=== PATIENT | female | born 1970 | race Caucasian/White ===

== ENCOUNTER → 2017-12-21 | Outpatient (CLI) | payer BC ==
--- NOTE | 2017-12-21 15:20 | RAD ---
Pelvic ultrasound, 12/21/2017: History: Pelvic pain, heavy menses Transabdominal and transvaginal scans were obtained. The uterus measures 7.6 x 3.5 x 4.4 cm. Small both nabothian are present in the cervical region. The myometrium is heterogeneous. There are several small hypoechoic foci in the uterus suggesting uterine fibroids. The largest of these lies posteriorly and measures 1.3 cm. There is a small 1.1 cm cystic-appearing structure within the left side of the uterus. There is a tiny amount of fluid in the central uterine cavity in the lower uterine segment. The central uterine echo complex superior to this level measures 3 mm in thickness. The ovaries are of normal size. No adnexal mass is seen. No free fluid is evident in the pelvis. IMPRESSION: 1. Small uterine fibroids. 2. Nabothian cysts in the cervix. 3. Tiny amount of fluid in the central uterine cavity. 4. No significant adnexal abnormality.
--- NOTE | 2017-12-24 11:03 | RAD ---
DATE: 12/21/2017 EXAM: MAMMO JYOTI SCREENING BILATERAL HISTORY: Routine screening. This is dictated as a baseline examination COMPARISON: None available This study was interpreted with the benefit of Computerized Aided Detection (CAD). FINDINGS: Breast Density: HETERO The breast parenchyma Is heterogeneouslyy dense, which could reduce sensitivity of mammography. Breast parenchyma level C. There are no dominant suspicious masses, suspicious microcalcifications or evidence of architectural distortion. Intramammary lymph node identified in the right breast. Bilateral breast prostheses appear intact. IMPRESSION: Benign findings BI-RADS CATEGORY: 2 BENIGN FINDING RECOMMENDED FOLLOW-UP: 12M 12 MONTH FOLLOW-UP PQRS compliance statement: Patient information was entered into a reminder system with a target due date 12/21/2018 for the next mammogram. Mammography is a sensitive method for finding small breast cancers, but it does not detect them all and is not a substitute for careful clinical examination. A negative mammogram does not negate a clinically suspicious finding and should not result in delay in biopsying a clinically suspicious abnormality. "Our facility is accredited by the [employer] Mammography Program."
== END | disposition home or self-care (01) ==
LOC: US 13:49
PROVIDERS: ATTEND Physician Assistant
DX: Z12.31 Encounter for screening mammogram for malignant neoplasm of breast (principal); D25.9 Leiomyoma of uterus, unspecified; N88.8 Other specified noninflammatory disorders of cervix uteri; N92.0 Excessive and frequent menstruation with regular cycle
CPT/HCPCS: 76830; 76856; 77063; 77067

== ENCOUNTER 2018-04-06 11:04 | Emergency (ER) | payer BC ==
[~2018-04-06] VITALS: Ht 160 cm; Wt 62.0 kg
[2018-04-06 11:04] VITALS: BP 115/68
[2018-04-06 12:03] LABS: BASO % 1 % (0-3); EOS # 0.1 x10^3/uL (0.0-0.7); EOS % 1 % (0-3); HEMATOCRIT 44.9 % (36.0-47.0); HEMOGLOBIN 15.3 g/dL (12.0-15.5); LYMPH # 1.3 x10^3/uL (1.0-4.8); LYMPH % 23 % (24-48); MEAN CORPUSCULAR HEMOGLOBIN 32 pg (25-35); MEAN CORPUSCULAR HGB CONC 34 g/dL (31-37); MEAN CORPUSCULAR VOLUME 95 fL (79-100); MONO # 0.5 x10^3/uL (0.0-1.1); MONO % 8 % (0-9); NEUT # 3.8 x10^3uL (1.8-7.7); NEUT % 66 % (31-73); PLATELET COUNT 336 x10^3/uL (140-400); RED BLOOD COUNT 4.73 x10^6/uL (3.50-5.40); RED CELL DISTRIBUTION WIDTH 12.9 % (11.5-14.5); WHITE BLOOD COUNT 5.8 x10^3/uL (4.0-11.0)
--- NOTE | 2018-04-06 12:03 | PHYS DOC ---
Adult General Chief Complaint Chief Complaint: LOWER EXTREMITY SWELLING [facility] HPI Patient is a 47 YO F WITH LLE SWELLING ONSET A FEW DAYS AGO. SHE HAD SOME PAIN BEHIND HER KNEE SEVERAL MONTHS AGO SHE STOPPED RUNNING BECAUSE SHE THOUGHT IT WAS FROM THAT. PMD ADVISED HER TO FOLLOW UP HERE FOR ULTRASOUND TO EVAL FOR DVT NO CHEST PAIN OR SHORTNESS OF BREATH. Review of Systems Review of Systems Constitutional: Denies fever or chills [] Eyes: Denies change in visual acuity, redness, or eye pain [] HENT: Denies nasal congestion or sore throat [] Respiratory: Denies cough or shortness of breath [] Cardiovascular: No additional information not addressed in HPI [] GI: Denies abdominal pain, nausea, vomiting, bloody stools or diarrhea [] : Denies dysuria or hematuria [] Musculoskeletal: HPI All other systems were reviewed and found to be within normal limits, except as documented in this note. Allergies Allergies Allergies Coded Allergies Type Severity Reaction Last Updated Verified No Known Drug Allergies 04/06/18 No Physical Exam Physical Exam Constitutional: Well developed, well nourished, no acute distress, non-toxic appearance. [] HENT: Normocephalic, atraumatic, bilateral external ears normal, oropharynx moist, no oral exudates, nose normal. [] Eyes: PERRLA, EOMI, conjunctiva normal, no discharge. [] Neck: Normal range of motion, no tenderness, supple, no stridor. [] Cardiovascular:Heart rate regular rhythm, no murmur [] Lungs & Thorax: Bilateral breath sounds clear to auscultation [] Abdomen: Bowel sounds normal, soft, no tenderness, no masses, no pulsatile masses. [] Skin: Warm, dry, no erythema, no rash. [] Back: No tenderness, no CVA tenderness. [] Extremities:THERE IS SWELLING NOTED TO THE LEFT LOWER EXTREMITY WITH MILD CALF TTP NOTED. ALSO POSTERIOR KNEE TTP NOTED. Neurologic: Alert and oriented X 3, normal motor function, normal sensory function, no focal deficits noted. [] Psychologic: Affect normal, judgement normal, mood normal. [] EKG EKG [] Radiology/Procedures Radiology/Procedures [] Impressions: Duplex evaluation including grayscale, color flow and spectral Doppler analysis was performed. The femoral and popliteal veins show no filling defects to suggest DVT. The visualized calf veins are unremarkable. There is an elongated fluid collection in the medial aspect of the left popliteal fossa extending into the upper calf. It measures approximately 4 x 2 x 1 cm. The appearance is that of a Canseco's cyst. IMPRESSION: 1. There is no sonographic evidence of deep vein thrombosis in the left lower extremity. 2. Popliteal cyst extending into the upper calf. Electronically signed by: Alfred Rodriguez MD (04/06/2018 1:11 PM) [facility] DICTATED AND SIGNED BY: ALFRED RODRIGUEZ MD DATE: 04/06/18 0549 CC: ELVI RIGGS MD; OLIVE ARVIZU MD Course & Med Decision Making Course & Med Decision Making Pertinent Labs and Imaging studies reviewed. (See chart for details) []47 YO F WITH LEG SWELLING FOUND TO HAVE POPLITERAL CYST RX MOTRIN, WEAR KNEE BRACE, ICE ELEVATE REST of ankle F/U PMD NEEDED FOR CONTINUED SYMPTOMS. VITALS ON NURSING CHART aWERE NORMAL PE R STAFF. Dragon Disclaimer Dragon Disclaimer This electronic medical record was generated, in whole or in part, using a voice recognition dictation system. Departure Departure: Disposition: 01 HOME, SELF-CARE Condition: STABLE Referrals: ELVI RIGGS MD (PCP) Scripts Ibuprofen (IBUPROFEN) 600 Mg Tablet 600 MG PO TID PRN for PAIN, #30 TAB Prov: OLIVE ARVIZU MD 04/06/18 OLIVE ARVIZU MD Apr 06, 2018 12:03
[2018-04-06 12:17] LABS: ALBUMIN/GLOBULIN RATIO 1.1 (1.0-1.7); CALCIUM 8.9 mg/dL (8.5-10.1); CREATININE 0.8 mg/dL (0.6-1.0); GFR 76.2; POTASSIUM 3.8 mmol/L (3.5-5.1); TOTAL BILIRUBIN 0.7 mg/dL (0.2-1.0); TOTAL PROTEIN 7.5 g/dL (6.4-8.2)
--- NOTE | 2018-04-06 13:14 | RAD ---
Left lower extremity venous ultrasound, 04/06/2018 : History: Posterior knee swelling, calf pain Duplex evaluation including grayscale, color flow and spectral Doppler analysis was performed. The femoral and popliteal veins show no filling defects to suggest DVT. The visualized calf veins are unremarkable. There is an elongated fluid collection in the medial aspect of the left popliteal fossa extending into the upper calf. It measures approximately 4 x 2 x 1 cm. The appearance is that of a Canseco's cyst. IMPRESSION: 1. There is no sonographic evidence of deep vein thrombosis in the left lower extremity. 2. Popliteal cyst extending into the upper calf. Electronically signed by: Alfred Rodriguez MD (04/06/2018 1:11 PM) [facility]
[2018-04-06] MEDS ORDERED: IBUP600T16 PO (13:58)
== END 2018-04-06 13:56 | disposition home or self-care (01) ==
LOC: ER 11:04
DX: M71.22 Synovial cyst of popliteal space [Baker], left knee (principal)
CPT/HCPCS: 36415; 80053; 84702; 85025; 85610; 93971; 99285-25

== ENCOUNTER → 2018-06-11 | Day surgery (SDC) | payer BC ==
[~2018-06-11] MED LIST: IBUP600T16 PO; IV RINGERS SOLUTION,LACTATED 1,000 ML IV SCH; LIDOCAINE 1% PF 2 ML VIAL. ID PRN; LIDOCAINE 2% 20 ML VIAL. ONE; PROPOFOL 10,000 MCG/ML (20ML) VIAL IV ONE; PROPOFOL 20 ML IV ONE
[2018-06-11 11:45] VITALS: BP 112/56
== END | disposition home or self-care (01) ==
LOC: SURG 08:57
PROVIDERS: ATTEND Internal Medicine Gastroenterology
DX: Z12.11 Encounter for screening for malignant neoplasm of colon (principal); F32.9 Major depressive disorder, single episode, unspecified; F41.9 Anxiety disorder, unspecified; Z98.890 Other specified postprocedural states
CPT/HCPCS: 45378; J2704; J7120; J2001

== ENCOUNTER → 2020-04-27 | Outpatient (CLI) | payer BC ==
[2018-06-11 11:45] VITALS: BP 112/56
[~2020-04-27] MED LIST changes: -IV RINGERS SOLUTION,LACTATED 1,000 ML IV SCH; -LIDOCAINE 1% PF 2 ML VIAL. ID PRN; -LIDOCAINE 2% 20 ML VIAL. ONE; -PROPOFOL 10,000 MCG/ML (20ML) VIAL IV ONE; -PROPOFOL 20 ML IV ONE
--- NOTE | 2020-04-28 12:58 | RAD ---
BILATERAL SCREENING MAMMOGRAM, 3-D History: Routine screening. Comparison: 12/21/2017. Technique: MLO and CC digital tomosynthesis (3D) images obtained. Radiologist reviewed these images on dedicated workstation. Findings: Breast Tissue Density B : There are scattered areas of fibroglandular density. There are no dominant masses, suspicious microcalcifications, or architectural distortion. Bilateral subpectoral breast implants have a normal contour and are stable. IMPRESSION: No mammographic evidence of malignancy. Recommend routine screening. BI-RADS category 1: Negative. The images were reviewed with computer-aided detection. Patient information is entered into reminder system with a target due date for the next screening mammogram. Mammography is the most sensitive method for finding small breast cancers, but it does not detect them all and is not a substitute for careful clinical examination. A negative mammogram does not negate a clinically suspicious finding and should not result in delay in biopsying a clinically suspicious abnormality. "Our facility is accredited by the [employer] Mammography [employer]." Electronically signed by: Dc Leonard MD (04/28/2020 12:55 PM) [facility]
== END ==
LOC: MAMMO 15:20
PROVIDERS: ATTEND Family Medicine
DX: Z12.31 Encounter for screening mammogram for malignant neoplasm of breast (principal)
CPT/HCPCS: 77063; 77067

== ENCOUNTER → 2020-04-27 | Outpatient (CLI) | payer BC ==
[2018-06-11 11:45] VITALS: BP 112/56
--- NOTE | 2020-04-27 20:01 | RAD ---
EXAM: CERVICAL SPINE 2-3V. HISTORY: Degenerative disc disease, neck pain. COMPARISON: None. FINDINGS: Degenerative disc disease is moderate at C5-6. There is mild reversal of the normal cervical lordosis from C4 through C6. No fractures are identified. There is no prevertebral soft tissue swelling. IMPRESSION: 1. Moderate degenerative disc disease at C5-6. Electronically signed by: Jamie Haas MD (04/27/2020 7:58 PM) [facility]
== END ==
LOC: DXRAD 15:24
PROVIDERS: ATTEND Psychiatry & Neurology Neurology
DX: M50.322 Other cervical disc degeneration at C5-C6 level (principal)
CPT/HCPCS: 72040

== ENCOUNTER → 2021-04-28 | Outpatient (CLI) | payer BC, OTHER ==
[2018-06-11 11:45] VITALS: BP 112/56
--- NOTE | 2021-04-28 10:43 | RAD ---
EXAM: Bilateral digital screening mammogram with tomosynthesis. HISTORY: 51-year-old female presents for screening mammography. TECHNIQUE: Full-field digital craniocaudal and mediolateral oblique 2D and 3D tomosynthesis images of both breasts are obtained for evaluation. Computer aided detection was applied. COMPARISON: 03/31/2020 BREAST PARENCHYMAL DENSITY: Level C - Heterogeneously dense. FINDINGS: There is no new suspicious mass, microcalcification or region of architectural distortion. There is a stable prominent right axillary tail lymph node. There are bilateral breast implants. IMPRESSION: BI-RADS Category 2: Benign finding(s). RECOMMENDATION: Annual mammography is recommended. If your mammogram demonstrates that you have dense breast tissue, which could hide abnormalities, and if you have other risk factors for breast cancer that have been identified, you might benefit from s upplemental screening tests that may be suggested by your ordering physician. Dense breast tissue, i n and of itself, is a relatively common condition. This information is not provided to cause undue c oncern, but rather to raise your awareness and to promote discussion with your physician regarding th e presence of other risk factors, in addition to dense breast tissue. A report of your mammography re sults will be sent to you and your physician. You should contact your physician if you have any ques tions or concerns regarding this report. Mammography is a sensitive method for finding small breast cancers, but it does not detect them all a nd is not a substitute for careful clinical examination. A negative mammogram does not negate a clin ically suspicious finding and should not result in delay in biopsying a clinically suspicious abnorma lity. PQRS compliance statement - Patient information was entered into a reminder system with a target due date for the next mammogram. "Our facility is accredited by the [employer] Mammography Program." Electronically signed by: Tabitha Engle MD (04/28/2021 10:40 AM) [id number]
== END ==
LOC: MAMMO 09:16
PROVIDERS: ATTEND Family Medicine
DX: Z12.31 Encounter for screening mammogram for malignant neoplasm of breast (principal)
CPT/HCPCS: 77063; 77067

== ENCOUNTER → 2021-06-07 | Outpatient (CLI) | payer BC, OTHER ==
[2018-06-11 11:45] VITALS: BP 112/56
[~2021-06-07] MED LIST changes: +IOHEXOL 300 MG/ML 75 ML VIAL. IV ONE
--- NOTE | 2021-06-07 10:18 | RAD ---
Study: CT of the abdomen and pelvis with and without contrast 06/07/2021 Comparison: None Clinical Indication: Increased liver enzymes for 2 years Technique: Contiguous axial images are obtained from the apex of the diaphragm to the pelvic floor. I mages are obtained prior to contrast administration and in the portal venous phase(s). Sagittal and coronal reformations are evaluated. Dose Reduction: One or more of the following individualized dose reduction techniques were utilized f or this examination: 1. Automated exposure control, 2. Adjustment of the mA and/or kV according to p atient size, 3. Use of iterative reconstruction technique FINDINGS: Evaluation of the hollow enteric structures is somewhat limited by lack of oral contrast. Lung bases: Grossly unremarkable Lower Mediastinum: Grossly unremarkable Liver: Mild hepatomegaly measuring up to 19 cm in its maximal CC dimension. Tiny ill-defined hypodens ity in segment 7 of the liver is too small to definitively characterize but statistically represents a cyst. Biliary: No intra or extra hepatic biliary ductal dilatation. Gallbladder: Partially fluid distended and grossly unremarkable with no radiographically discernible stones. No pericholecystic fluid. Pancreas: Grossly unremarkable Spleen: Grossly unremarkable Adrenals: Grossly unremarkable Kidneys: Free of any hydronephrosis, nephrolithiasis. There are focal areas of cortical thinning of t he right kidney, likely related to prior insult such as infection. Gastroduodenum:Grossly unremarkable. Small bowel: Grossly unremarkable with no areas of focal wall thickening or dilatation. Large bowel: Grossly unremarkable with no areas of focal bowel wall thickening or dilatation. Moderat e amount of stool. Appendix: Normal Mesentery:No free or loculated fluid collections. No pathologic lymphadenopathy. Retroperitoneum:No suspicious masses or lymphadenopathy. Bladder:Partially fluid distended and grossly unremarkable. Reproductive pelvic organs:Normal for patient's age. Vascular:Aorta is nonaneurysmal. No clinically significant aortoiliac or visceral arterial stenoses. Bones:No suspicious osteoblastic or osteolytic bone lesions. Moderate multifocal facet arthrosis at m ultiple lower lumbar levels IMPRESSION: 1. Mild hepatomegaly without other findings to suggest etiology of patient's elevated LFTs. 2. No acute infectious or inflammatory process in the abdomen or pelvis. Electronically signed by: Eduin Love (06/07/2021 10:15 AM) [id number]
== END ==
LOC: CT 08:44
PROVIDERS: ATTEND Family Medicine
DX: R16.0 Hepatomegaly, not elsewhere classified (principal); M47.816 Spondylosis without myelopathy or radiculopathy, lumbar region
CPT/HCPCS: 74178; Q9967

== ENCOUNTER → 2021-07-25 | Outpatient (CLI) | payer BC, OTHER ==
[2018-06-11 11:45] VITALS: BP 112/56
[~2021-07-25] MED LIST changes: -IOHEXOL 300 MG/ML 75 ML VIAL. IV ONE
--- NOTE | 2021-07-25 16:59 | RAD ---
EXAM: ULTRASOUND PELVIS INDICATION: Reason: IRREGULAR BLEEDING COMPARISON: None available. TECHNIQUE: Transabdominal sonography was performed. FINDINGS: The uterus measures 8.7 x 4.8 x 4.1 cm. The endometrium measures 2 mm in thickness. The right ovary m easures 1.8 x 1.7 x 1.1 cm. The left ovary measures 2.8 x 1.6 x 1.5 cm. Blood flow identified in the right and left ovaries. Unremarkable visualized exam. IMPRESSION: Unremarkable exam. Electronically signed by: Shemar Wolf MD (07/25/2021 4:57 PM) [id number]
== END ==
LOC: US 13:49
PROVIDERS: ATTEND Family Medicine
DX: N92.6 Irregular menstruation, unspecified (principal)
CPT/HCPCS: 76856